=== PATIENT | male | born 1980 | race African-American/Black ===

== ENCOUNTER 2018-02-27 10:27 | Outpatient (CLI) | payer OTHER | END 2018-02-27 10:34 | disposition short-term general hospital (02) | LOC: AMB 10:27 | DX: R07.89 Other chest pain (principal) | CPT/HCPCS: A0425; A0427 ==

== ENCOUNTER 2018-02-27 10:37 | Observation (INO) | payer OTHER ==
[~2018-02-27] VITALS: Ht 167.6 cm; Wt 56.7 kg
[2018-02-27 10:38] VITALS: BP 147/84; TEMP 99.7
[2018-02-27 10:57] LABS: PLATELET COUNT 169 K/uL (142-355)
[2018-02-27 11:08] LABS: POTASSIUM 2.8 mmol/L (3.6-5.2)
[2018-02-27 11:15] LABS: PARTIAL THROMBOPLASTIN TIME 24.7 SECONDS (24.5-33.6)
[2018-02-27 15:05] VITALS: BP 122/77; TEMP 98.2; Ht 167.6 cm; Wt 56.7 kg
[2018-02-27 16:01] VITALS: BP 122/77; TEMP 98.2
[2018-02-27 20:00] VITALS: BP 138/79; TEMP 98.7
[2018-02-28] VITALS: BP 131/87; TEMP 97.9
[2018-02-28 04:00] VITALS: BP 135/86; TEMP 97.6
[2018-02-28 08:17] VITALS: BP 134/92; TEMP 98.2
[2018-02-28 12:00] VITALS: BP 136/83; TEMP 97.8
[2018-02-28 13:25] LABS: PLATELET COUNT 158 K/uL (142-355)
[2018-02-28 13:38] LABS: POTASSIUM 3.7 mmol/L (3.6-5.2)
== END 2018-02-28 18:30 | disposition home or self-care (01) ==
LOC: ED 10:37 → MED/SURG 11:35
PROVIDERS: Internal Medicine
DX: R07.89 Other chest pain (principal); R00.1 Bradycardia, unspecified
CPT/HCPCS: 36415; 80053; 80307; 82550; 82553; 84484; 85027; 85610; 85730; 93005; 96365; 96366; 96372; 99220; 99284; G0378; J1650